=== PATIENT | male | born 1955 | race Caucasian/White ===

== ENCOUNTER → 2020-03-06 12:29 | Outpatient (CLI) | payer OTHER, SELFPAY ==
--- NOTE | 2020-03-06 | DI.RAD.S_ITS ---
PROCEDURE: XR KNEE LT 3V INDICATIONS: LEFT KNEE PAIN TECHNIQUE: 3 views of the knee were acquired. COMPARISON: CR, KNEE 3VW (RT), 09/20/2014, 9:08. FINDINGS: Bones: No fractures or dislocations. Irregularity of the anterior patella. A small quadriceps enthesophyte. Tricompartmental osteophytosis. Minimal joint space narrowing at the medial compartment. No suspicious bony lesions. Soft tissues: Small joint effusion. No suspicious soft tissue calcifications. 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 Small joint effusion. Dictated by: Gordo Barron M.D. on 03/06/2020 at 12:58 Approved by: Gordo Barron M.D. on 03/06/2020 at 13:46
== END ==
PROVIDERS: PCP Family Medicine; Referring Provider Family Medicine; Visit Provider Family Medicine
DX: M25.562 Pain in left knee (principal); M25.462 Effusion, left knee
CPT/HCPCS: 73562

== ENCOUNTER → 2020-07-18 10:47 | Outpatient (CLI) | payer OTHER, SELFPAY ==
[2020-07-19 10:13] LABS: COVID19 Sendout Not Detected (Not Detect)
== END ==
PROVIDERS: PCP Family Medicine; Visit Provider Physician Assistant
DX: Z11.59 Encounter for screening for other viral diseases (principal)
CPT/HCPCS: 87635

== ENCOUNTER 2020-07-21 13:26 | Day surgery (SDC) | payer OTHER, SELFPAY ==
--- NOTE | 2020-07-21 12:00 | PM.OP.ENDO ---
Operative Date/Time/Diagnoses Date of procedure: 07/21/20 Procedure Notes Procedure in detail: ENDOSCOPIST: Judy Fink MD Sedation RN: Padilla Beasley RN Sedation start time: 2:35 p.m. Sedation end time: 2:56 p.m. PROCEDURE: Colonoscopy INDICATIONS: 1. History of colon polyps 2. Family history of colon cancer 3. Diverticulosis 4. Screening for colon cancer MEDICATION: Levsin 0.125 mg sublingual, incremental doses of Versed and fentanyl until appropriate level sedation achieved. ASA CLASS: 2 CECAL WITHDRAWAL TIME: 12 minutes COMPLICATIONS: None. EXTENT OF PROCEDURE: Cecum. QUALITY OF PREP: Good with portions of liquid stool. PROCEDURE: Prior to insertion of the colonoscope, a digital rectal examination was accomplished with circumferential palpation of the distal rectal mucosa without significant findings being noted. The high-definition colonoscope was passed into the rectum in the usual fashion and advanced over to the cecum without difficulty. The ileocecal valve, appendiceal stoma, and medial wall all could be inspected and no abnormalities were seen. ASCENDING COLON: As the colonoscope was withdrawn, care was taken to expose and inspect the haustral folds and mild diverticulosis was seen. HEPATIC FLEXURE: Minor diverticulosis, otherwise, normal, no polyps or other abnormalities. TRANSVERSE COLON: Minor diverticulosis, otherwise, normal, no polyps or other abnormalities. DESCENDING COLON: Moderate diverticulosis, otherwise, normal, no polyps or other abnormalities. SIGMOID COLON: Moderate diverticulosis, otherwise, normal, no polyps or other abnormalities. RECTUM: Normal. J maneuver was produced. There was no significant perianal disease. The J maneuver was broken. The remainder of the rectum was inspected and there was external hemorrhoid disease. The scope was withdrawn. IMPRESSION: 1. Normal colonoscopy 2. Pancolonic diverticulosis 3. External hemorrhoid disease PLAN: 1. Secondary to history of colon polyps and family history of colon cancer, repeat colonoscopy in 5 years. The possibility of a missed lesion including a malignancy has been discussed with the patient previously. Potential alarm symptoms have been discussed and should be reported immediately. Post-procedure Recommendations: Colonscopy in 5 years Follow up: as needed Disposition: PACU
[2020-07-21] MEDS: LACTATED RINGERS 1,000 ML 200 ML IV (13:45)
[2020-07-21 13:46] VITALS: BP 138/81; PULSE 59; RESP 12; TEMP 36.3; O2SAT 98; BMI 32.5
[2020-07-21] MEDS: HYOSCYAMINE 0.125 MG TABLET PO (14:02)
--- NOTE | 2020-07-21 14:25 | PM.PREOP ---
Pre-operative Note COVID-19 COVID-19 status: Negative Result date/Date tested (Pos, Neg/Pending): 07/18/20 Interval Note History & Physical reviewed/Exam performed by Physician: Yes Changes to H&P: No ASA Class (for procedural sedation): II
[2020-07-21] MEDS: MIDAZOLAM 5 MG/5 ML VIAL IV (14:32)
[2020-07-21] MEDS: fentaNYL 250 MCG/5 ML INJ IV (14:32)
[2020-07-21 15:05] VITALS: BP 129/86; PULSE 52; RESP 17; TEMP 36.4; O2SAT 98
[2020-07-21 15:06] VITALS: BP 141/95; PULSE 61; RESP 13; O2SAT 96
[2020-07-21 15:11] VITALS: BP 139/87; PULSE 54; RESP 20; O2SAT 97
[2020-07-21 15:39] VITALS: BP 114/72; PULSE 50; RESP 16; TEMP 36.3; O2SAT 96
== END 2020-07-21 15:25 | disposition home or self-care (01) ==
PROVIDERS: PCP Family Medicine; Referring Provider Family Medicine; Visit Provider Student in an Organized Health Care Education/Training Program
PROC: 0DJD8ZZ Inspection of Lower Intestinal Tract, Via Natural or Artificial Opening Endoscopic (ICD-10-PCS; CPT 45378; principal; 2020-07-21 14:30)
DX: Z12.11 Encounter for screening for malignant neoplasm of colon (principal); Z86.010 Personal history of colon polyps; Z80.0 Family history of malignant neoplasm of digestive organs; K57.30 Diverticulosis of large intestine without perforation or abscess without bleeding; K64.4 Residual hemorrhoidal skin tags
CPT/HCPCS: 45378; J2250; J3010

== ENCOUNTER → 2023-03-07 10:40 | Outpatient (CLI) | payer MEDICARE, OTHER, SELFPAY ==
--- NOTE | 2023-03-10 22:38 | DI.NM.S_ITS ---
DATE OF SERVICE: 03/07/2023 PROCEDURE: Exercise perfusion study. INDICATIONS: Chest pain with underlying hypertension, hyperlipidemia. RADIOPHARMACEUTICAL: 26.7 millicurie technetium-99m Myoview IV was injected at stress and 25.0 millicurie technetium-99m Myoview IV was injected at rest. CARDIAC STRESS: The patient underwent exercise perfusion study under the supervision of an attending staff. The patient walked on Aneesh protocol for 7 minutes and 21 seconds, achieved 8.3 METS of workload, KATHLEEN -3%. Resting blood pressure 120/80 and peak blood pressure 178/90 mmHg. Maximum heart rate 175 beats per minute. No chest pain or anginal symptoms. Resting ECG showed regular, narrow QRS tachycardia, rate 160, consistent with SVT, which spontaneously converted to sinus rhythm with frequent PVCs. No significant ST depression during SVT. During stress, the patient remained in sinus rhythm without any convincing ischemic changes with frequent PVCs without any sustained ventricular tachycardia. Around 2 minutes in recovery, patient developed SVT again. Vagal maneuvers were unsuccessful. The patient was given adenosine 6 mg IV which did not help. Blood pressure was about 120/68. He was given another 6 mg at 57 minutes into the recovery. The patient remained in SVT. Hence, the patient was given IV Lopressor 5 mg. The patient remained in SVT and blood pressure dropped to 80/60. Maximum heart rate was 175 beats per minute. The patient remained awake and alert. The patient was taken to the [facility] RAW DATA: There is increased subdiaphragmatic activity. GATED STUDY: Resting LV ejection fraction 69% and stress LV ejection fraction 63% without any obvious wall motion abnormalities. Resting end-diastolic volume 108 mL. TID ratio 1.27, which is mildly abnormal. Lung/heart ratio 0.20, which is within normal limits. MYOCARDIAL PERFUSION SCAN: Stress supine, resting supine and stress prone images were compared to each other. Resting supine images revealed moderate- size, mildly decreased perfusion of inferior wall extending into the distal inferior septum, as well as mildly decreased perfusion of distal anterior wall. Stress supine images revealed moderate-size, moderately decreased perfusion of inferior wall, as well as mildly decreased perfusion of distal anteroseptal and distal anterior wall. During stress prone images, inferior wall defect almost completely normalized. Distal anterior wall defect got normalized as well as distal inferior septum. However, patient remained having mildly decreased perfusion of distal anteroseptal wall. CONCLUSION: No significant reversible ischemia. Persistent, mildly decreased perfusion of the distal anterior septum on stress prone images. Evidence of significant diaphragmatic tissue attenuation artifact, which got improved during stress prone images, however, stress left ventricular ejection fraction 63% and resting left ventricular ejection fraction 69%. TID ratio 1.27, which was mildly abnormal. Abnormal TID suggest possible triple-vessel disease or left main disease. The patient also had resting supraventricular tachycardia as well as recurrence of supraventricular tachycardia in recovery, which was refractory to adenosine and IV metoprolol. He was taken to the [place] ER. Correlate clinically and consider left heart catheterization in view of abnormal TID. For supraventricular tachycardia, he will benefit with referral to EP. Esme Richard - YESSENIA/chago/yamile doc#: [id number]/job#: [id number] dd: 03/10/2023 17:17:00 dt: 03/10/2023 22:12:00 DICTATING MD/COPIES TO: Berenice Peterson MD; Kartik Phillips MD COPIES MNE: MAX;
== END ==
PROVIDERS: PCP Family Medicine; Referring Provider Family Medicine; Visit Provider Family Medicine
DX: R07.89 Other chest pain (principal); I10 Essential (primary) hypertension; E78.5 Hyperlipidemia, unspecified
CPT/HCPCS: 78452; 93017; A9502

== ENCOUNTER 2023-03-10 13:48 | Emergency (ER) | payer MEDICARE, OTHER, SELFPAY ==
[2023-03-10 13:49] VITALS: BP 148/82; PULSE 78; RESP 18; TEMP 36.2; O2SAT 99; BMI 34.9
--- NOTE | 2023-03-10 13:51 | ED.GENADULT ---
HPI - General Adult General Chief complaint: Arrhythmia/Palpitations Stated complaint: tachycardia Time Seen by Provider: 03/10/23 13:49 Source: patient Mode of arrival: Wheelchair Limitations: no limitations History of Present Illness HPI narrative: Patient is a 67-year-old male who was brought down from the nuclear medicine clinic. Patient was getting a stress test today. Patient was on the treadmill and had episodes of SVT with heart rate in the 130s. Patient did receive 6 mg of adenosine that another 6 mg of adenosine and then 5 mg of IV metoprolol. This did not change his heart rate. He was not having any chest pain but was feeling somewhat lightheaded. It is reported that his blood pressure was in the low 100s. Patient was brought here to the emergency department. Here in the ER patient states that he was getting the stress test because he is had occasional episodes of SVT. He is not having any chest pain or shortness of breath. Related Data Home Medications Medication Instructions Recorded Confirmed atorvastatin 20 mg tablet 1 mg PO DAILY 07/21/20 07/21/20 etodolac 400 mg tablet 1 mg PO DAILY 07/21/20 07/21/20 lisinopril 10 mg tablet 10 mg PO DAILY 07/21/20 07/21/20 metformin 500 mg tablet 1,000 mg PO BID 07/21/20 07/21/20 metoprolol succinate 100 mg 100 mg PO DAILY 07/21/20 07/21/20 tablet,extended release 24 hr Allergies Allergy/AdvReac Type Severity Reaction Status Date / Time No Known Drug Allergies Allergy Verified 07/21/20 13:39 Review of Systems Constitutional Constitutional: Reports system reviewed and no additional complaints, except as documented Cardiovascular Cardiovascular: Reports system reviewed and no additional complaints, except as documented Respiratory Respiratory: Reports system reviewed and no additional complaints, except as documented Gastrointestinal Gastrointestinal: Reports system reviewed and no additional complaints, except as documented Integumentary/Breasts Skin/Breast: Reports system reviewed and no additional complaints, except as documented Hematologic/Lymphatic On Anticoagulants: No Patient History Social History household members: spouse Smoking Status: Never smoker Smoking Status: Never smoker alcohol intake frequency: 0-2 drinks per day Substance Use Type: does not use Exam Initial Vital Signs Initial Vital Signs: Vital Signs Temperature 97.1 F L 03/10/23 13:49 Pulse Rate 78 03/10/23 13:49 Respiratory Rate 18 03/10/23 13:49 Blood Pressure 148/82 H 03/10/23 13:49 Pulse Oximetry 99 03/10/23 13:49 Oxygen Delivery Method Room Air 03/10/23 13:49 Const General: cooperative, comfortable and No ill appearing HENMT Head: normal to inspection and normocephalic Resp Effort & Inspection: normal respiratory effort Auscultation: clear to auscultation bilaterally Cardio Rate: regular rate Rhythm: regular rhythm GI Inspection: normal to inspection Skin General: no rashes or lesions noted Neuro General: patient alert, patient awake and moves all extremities Extrem General: normal to inspection and capillary refill normal Course Orders Ordered: ED Orders 03/10/23 13:50 EKG-12 Lead Stat Vital Signs Vital signs: Vital Signs - 8 hr 03/10/23 13:49 Temperature 97.1 F L Pulse Rate 78 Respiratory Rate 18 Blood Pressure 148/82 H Pulse Oximetry 99 Oxygen Delivery Method Room Air Medical Decision Making ECG Data Attestation: I personally reviewed and interpreted this ECG as follows: Interpretation: Sinus rhythm Ventricular rate is 74 First-degree AV block AK interval 218 milliseconds Normal axis Normal QRS No ST T wave changes MDM Narrative Medical decision making narrative: Upon arrival patient is back into a sinus rhythm with a heart rate in the 70s. He is no specific symptoms. EKG confirmed sinus rhythm. 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 No further workup here in the emergency department his needed. Patient will be discharged back to nuclear Medicine to continue his studies. Discharge Plan Departure Patient Disposition: Home Clinical Impression: Supraventricular tachycardia Instructions: DI for Paroxysmal Supraventricular Tachycardia Activity Restrictions/Additional Instructions: I do recommend that you continue to take all of your medications as directed. Contact your primary doctor for a follow-up. Return to the emergency department for any new symptoms. Prescriptions: No Action atorvastatin 20 mg tablet 1 mg PO DAILY etodolac 400 mg tablet 1 mg PO DAILY lisinopril 10 mg tablet 10 mg PO DAILY metoprolol succinate 100 mg tablet extended release 24 hr 100 mg PO DAILY metformin 500 mg tablet 1,000 mg PO BID Referrals: Kartik Phillips MD [Primary Care Provider] - Stand Alone Forms: Patient Portal/API
[2023-03-10 13:53] VITALS: PULSE 77; RESP 17; O2SAT 97
[2023-03-10 14:00] VITALS: PULSE 77; RESP 16; O2SAT 97
== END 2023-03-10 14:04 | disposition home or self-care (01) ==
PROVIDERS: Emergency Provider Emergency Medicine; PCP Family Medicine
DX: I47.1 Supraventricular tachycardia (principal)
CPT/HCPCS: 93005; 93010; 99282; 99283

== ENCOUNTER → 2024-10-13 09:35 | Outpatient (CLI) | payer MEDICARE, OTHER, SELFPAY | LOC: LAB 09:42 | PROVIDERS: PCP Family Medicine; Referring Provider Family Medicine; Visit Provider Family Medicine | DX: Z12.9 Encounter for screening for malignant neoplasm, site unspecified (principal) | CPT/HCPCS: 36415 ==

== ENCOUNTER → 2025-05-18 10:44 | Outpatient (CLI) | payer MEDICARE, OTHER, SELFPAY ==
--- NOTE | 2025-05-18 10:47 | DI.RAD.S_ITS ---
PROCEDURE: XR KNEE STANDING BI INDICATIONS: KNEE PAIN TECHNIQUE: AP view of both knee(s) COMPARISON: [facility], CR, XR KNEE LT 3V, 03/06/2020, 12:29. FINDINGS: Bones: There are no osseous abnormalities. Joints: Mild right medial tibial femoral and left tibial femoral degeneration Soft tissues: Normal IMPRESSION: Bilateral degeneration more prominent the left. Dictated by: Gorge Velasco M.D. on 05/19/2025 at 12:50 Approved by: Gorge Velasco M.D. on 05/19/2025 at 12:50
--- NOTE | 2025-05-18 10:47 | DI.RAD.S_ITS ---
PROCEDURE: XR KNEE LT 1TO2V INDICATIONS: KNEE PAIN TECHNIQUE: 3 views of the knee were acquired. COMPARISON: [facility], , XR KNEE LT 3V, 03/06/2020, 12:29. FINDINGS: Bones: There are no osseous abnormalities. Joints: The tibialfemoral and patellofemoral joints show moderate degeneration which has progressed considerably since 2019. Small effusion noted Soft tissues: Normal IMPRESSION: Moderate patellofemoral and tibiofemoral degeneration progressing considerably since 2019 plain films. Small effusion Dictated by: Gorge Velasco M.D. on 05/19/2025 at 12:48 Approved by: Gorge Velasco M.D. on 05/19/2025 at 12:48
--- NOTE | 2025-05-18 10:47 | DI.RAD.S_ITS ---
PROCEDURE: XR KNEE RT 1TO2V INDICATIONS: KNEE PAIN TECHNIQUE: Two views of the right knee were acquired. COMPARISON: [facility], CR, XR KNEE LT 3V, 03/06/2020, 12:29. FINDINGS: Bones: There are no osseous abnormalities. Joints: Moderate patellofemoral and medial tibial femoral degeneration has progressed considerably since 2019 Soft tissues: Mild calcification patellar tendon insertion on the inferior patella IMPRESSION: Moderate degeneration progressing since 2019 Dictated by: Gorge Velasco M.D. on 05/19/2025 at 12:49 Approved by: Gorge Velasco M.D. on 05/19/2025 at 12:49
== END ==
LOC: RAD 10:46
PROVIDERS: PCP Family Medicine; Referring Provider Family Medicine; Visit Provider Family Medicine
DX: M17.0 Bilateral primary osteoarthritis of knee (principal); M25.561 Pain in right knee; M25.562 Pain in left knee
CPT/HCPCS: 73560; 73565